=== PATIENT | male | born 1945 | race Two or more races ===

== ENCOUNTER 2017-09-16 12:28 | Outpatient (CLI) | payer OTHER ==
[~2017-09-16 12:28] MED LIST: ABATINEX680 MG; ATENOLOL25 MG; AVAPRO300 MG; CARDURA XL4 MG/BOTTL; HYDROCHLOROTH12.5 M1; OMEPRAZOLE40 MG; XARELTO20 MG; [UNRECOGNIZED DRUG - OTHER]
== END 2017-09-16 12:36 | disposition home or self-care (01) ==
LOC: RAD 501 12:28
DX: M25.561 Pain in right knee (principal); M25.562 Pain in left knee